=== PATIENT | male | born 1955 | race Caucasian/White ===

== ENCOUNTER 2023-02-08 07:23 | Inpatient (IN) | payer OTHER ==
[~2023-02-08] VITALS: Ht 182.9 cm; Wt 103.3 kg
[2023-02-08] MEDS ORDERED: IBUP600 PO (07:41)
[2023-02-08] MEDS ORDERED: Acetaminophen325 M1 PO (07:41)
[2023-02-08 08:01] LABS: BASOPHILS ABSOLUTE AUTO 0.05 K/mm3 (0.00-0.23); BASOPHILS PERCENT AUTO 1 % (0-2); EOSINOPHILS ABSOLUTE AUTO 0.15 K/mm3 (0.00-0.68); EOSINOPHILS PERCENT AUTO 2 % (0-6); Hematocrit 44.3 % (37.0-53.0); Hemoglobin 14.7 g/dL (13.5-17.5); IMMATURE GRAN ABSOLUTE AUTO 0.04 K/mm3 (0.00-0.10); IMMATURE GRAN PERCENT AUTO 0 % (0-1); LYMPHOCYTES ABSOLUTE AUTO 2.43 K/mm3 (0.84-5.20); LYMPHOCYTES PERCENT AUTO 24 % (21-46); MONOCYTES ABSOLUTE AUTO 0.74 K/mm3 (0.16-1.47); MONOCYTES PERCENT AUTO 7 % (4-13); Mean Corpuscular HGB 31.8 pg (26.0-34.0); Mean Corpuscular HGB Conc 33.2 g/dL (31.5-36.5); Mean Corpuscular Volume 96 fL (80-100); Mean Platelet Volume 12.1 fL (9.1-12.4); NEUTROPHILS ABSOLUTE AUTO 6.66 K/mm3 (1.96-9.15); NEUTROPHILS PERCENT AUTO 66 % (41-73); Platelet Count 191 K/mm3 (150-400); RDW Coefficient Variation 13.5 % (11.7-14.2); RDW Standard Deviation 47.4 fL (35.1-46.3); Red Blood Cell Count 4.62 M/mm3 (4.30-5.90); White Blood Cell Count 10.07 K/mm3 (4.00-11.30)
[2023-02-08 08:28] LABS: Albumin, Blood 3.7 g/dL (3.4-5.0); Bun/Creatinine Ratio 17.2 (12.0-20.0); Calcium, Blood 9.2 mg/dL (8.5-10.1); Creatinine, Blood 0.99 mg/dL (0.60-1.20); Globulin, Blood 3.7 g/dL (2.2-4.0); Potassium, Blood 4.3 mmol/L (3.5-5.5); Total Protein, Blood 7.4 g/dL (6.4-8.2)
[2023-02-08 09:17] LABS: Base Excess Venous 3.9 mmol/L; Bicarbonate Venous 25.7 mmol/L (24.0-30.0); PCO2 Venous 52.2 mmHg (38-42); pH Blood Venous 7.36 (7.34-7.37)
[2023-02-09 04:53] LABS: Anion Gap 6 mmol/L (6-16); Blood Urea Nitrogen 29 mg/dL (8-24); Bun/Creatinine Ratio 27.6 (12.0-20.0); CHOL/HDL RATIO 3.1; CO2, Blood 26 mmol/L (21-32); Calcium, Blood 9.2 mg/dL (8.5-10.1); Chloride, Blood 106 mmol/L (98-108); Cholesterol 142 mg/dL (50-200); Creatinine, Blood 1.05 mg/dL (0.60-1.20); Glomerular Filtration Rate 79 (60-); Glucose, Blood 150 mg/dL (70-99); HDL Cholesterol 46 mg/dL (>39); LDL/HDL RATIO 1.7; Low Density Lipoprotein Chol 77 mg/dL (0-110); Potassium, Blood 4.1 mmol/L (3.5-5.5); Sodium, Blood 138 mmol/L (136-145); Triglycerides 93 mg/dL (30-160); Very Low Density Lipoprot Chol 18 mg/dL (6-32)
[2023-02-09 15:10] LABS: International Normalized Ratio 1.08; Prothrombin Time Results 11.3 Sec (9.7-11.5)
[2023-02-10 04:37] LABS: BASOPHILS ABSOLUTE AUTO 0.07 K/mm3 (0.00-0.23); BASOPHILS PERCENT AUTO 1 % (0-2); EOSINOPHILS ABSOLUTE AUTO 0.07 K/mm3 (0.00-0.68); EOSINOPHILS PERCENT AUTO 1 % (0-6); Hematocrit 41.9 % (37.0-53.0); Hemoglobin 14.2 g/dL (13.5-17.5); IMMATURE GRAN ABSOLUTE AUTO 0.07 K/mm3 (0.00-0.10); IMMATURE GRAN PERCENT AUTO 1 % (0-1); LYMPHOCYTES ABSOLUTE AUTO 3.45 K/mm3 (0.84-5.20); LYMPHOCYTES PERCENT AUTO 24 % (21-46); MONOCYTES ABSOLUTE AUTO 1.09 K/mm3 (0.16-1.47); MONOCYTES PERCENT AUTO 8 % (4-13); Mean Corpuscular HGB 31.9 pg (26.0-34.0); Mean Corpuscular HGB Conc 33.9 g/dL (31.5-36.5); Mean Corpuscular Volume 94 fL (80-100); Mean Platelet Volume 11.8 fL (9.1-12.4); NEUTROPHILS ABSOLUTE AUTO 9.47 K/mm3 (1.96-9.15); NEUTROPHILS PERCENT AUTO 67 % (41-73); Platelet Count 235 K/mm3 (150-400); RDW Coefficient Variation 13.4 % (11.7-14.2); RDW Standard Deviation 46.3 fL (35.1-46.3); Red Blood Cell Count 4.45 M/mm3 (4.30-5.90); White Blood Cell Count 14.22 K/mm3 (4.00-11.30)
[2023-02-10 04:52] LABS: International Normalized Ratio 1.15
[2023-02-10 04:57] LABS: Albumin, Blood 3.7 g/dL (3.4-5.0); Anion Gap 6 mmol/L (6-16); Blood Urea Nitrogen 34 mg/dL (8-24); Bun/Creatinine Ratio 31.5 (12.0-20.0); CO2, Blood 28 mmol/L (21-32); Chloride, Blood 106 mmol/L (98-108); Creatinine, Blood 1.08 mg/dL (0.60-1.20); Glomerular Filtration Rate 76 (60-); Glucose, Blood 112 mg/dL (70-99); Magnesium, Blood 2.1 mg/dL (1.6-2.4); Phosphorus, Blood 4.4 mg/dL (2.5-4.9); Potassium, Blood 3.9 mmol/L (3.5-5.5); Sodium, Blood 140 mmol/L (136-145)
[2023-02-11 02:48] LABS: BASOPHILS ABSOLUTE AUTO 0.08 K/mm3 (0.00-0.23); BASOPHILS PERCENT AUTO 1 % (0-2); EOSINOPHILS ABSOLUTE AUTO 0.07 K/mm3 (0.00-0.68); EOSINOPHILS PERCENT AUTO 1 % (0-6); IMMATURE GRAN ABSOLUTE AUTO 0.06 K/mm3 (0.00-0.10); IMMATURE GRAN PERCENT AUTO 1 % (0-1); LYMPHOCYTES ABSOLUTE AUTO 3.23 K/mm3 (0.84-5.20); LYMPHOCYTES PERCENT AUTO 33 % (21-46); MONOCYTES ABSOLUTE AUTO 0.81 K/mm3 (0.16-1.47); MONOCYTES PERCENT AUTO 8 % (4-13); Mean Corpuscular HGB 31.6 pg (26.0-34.0); Mean Corpuscular HGB Conc 34.1 g/dL (31.5-36.5); Mean Corpuscular Volume 93 fL (80-100); NEUTROPHILS PERCENT AUTO 57 % (41-73); Platelet Count 229 K/mm3 (150-400); RDW Coefficient Variation 13.2 % (11.7-14.2); RDW Standard Deviation 44.7 fL (35.1-46.3); Red Blood Cell Count 4.43 M/mm3 (4.30-5.90); White Blood Cell Count 9.95 K/mm3 (4.00-11.30)
[2023-02-11 03:04] LABS: Albumin, Blood 3.5 g/dL (3.4-5.0); Anion Gap 5 mmol/L (6-16); Blood Urea Nitrogen 37 mg/dL (8-24); Bun/Creatinine Ratio 37.3 (12.0-20.0); CO2, Blood 31 mmol/L (21-32); Calcium, Blood 8.9 mg/dL (8.5-10.1); Chloride, Blood 103 mmol/L (98-108); Creatinine, Blood 0.99 mg/dL (0.60-1.20); Glomerular Filtration Rate 85 (60-); Glucose, Blood 175 mg/dL (70-99); Phosphorus, Blood 3.5 mg/dL (2.5-4.9); Potassium, Blood 3.4 mmol/L (3.5-5.5); Sodium, Blood 139 mmol/L (136-145)
[2023-02-12 06:24] LABS: Albumin, Blood 3.6 g/dL (3.4-5.0); Anion Gap 4 mmol/L (6-16); Blood Urea Nitrogen 31 mg/dL (8-24); Bun/Creatinine Ratio 28.2 (12.0-20.0); CO2, Blood 29 mmol/L (21-32); Chloride, Blood 107 mmol/L (98-108); Glomerular Filtration Rate 75 (60-); Glucose, Blood 112 mg/dL (70-99); Magnesium, Blood 2.2 mg/dL (1.6-2.4); Phosphorus, Blood 3.6 mg/dL (2.5-4.9); Potassium, Blood 3.6 mmol/L (3.5-5.5); Sodium, Blood 140 mmol/L (136-145)
[2023-02-12] MEDS ORDERED: Prinivil10 MG PO (12:34)
[2023-02-12] MEDS ORDERED: Nicoderm Cq1 EAC1 TOP (12:35)
[2023-02-12] MEDS ORDERED: METO50ER PO (12:35)
[2023-02-12] MEDS ORDERED: XARELTO20 MG PO (12:36)
[2023-02-12] MEDS ORDERED: SPIR25 PO (12:36)
[2023-02-12] MEDS ORDERED: ALBU90OI INH (12:36)
[2023-02-12] MEDS ORDERED: FLUTICASONE-SA1 EAC1 INH (12:38)
[2023-02-12] MEDS ORDERED: FURO40 PO (12:39)
== END 2023-02-12 13:55 | disposition home or self-care (01) | DRG 308 ==
LOC: ER 07:23 → PCU 07:24
PROVIDERS: Emergency Medicine; Family Medicine; Internal Medicine Cardiovascular Disease; Nurse Practitioner Acute Care; ADMIT Internal Medicine
PROC: 5A09357 Assistance with Respiratory Ventilation, Less than 24 Consecutive Hours, Continuous Positive Airway Pressure (ICD-10-PCS; 2023-02-09)
PROC: 5A2204Z Restoration of Cardiac Rhythm, Single (ICD-10-PCS; principal; 2023-02-10)
PROC: B24BZZ4 Ultrasonography of Heart with Aorta, Transesophageal (ICD-10-PCS; 2023-02-10)
DX: I48.0 Paroxysmal atrial fibrillation (principal); I50.21 Acute systolic (congestive) heart failure; J44.1 Chronic obstructive pulmonary disease with (acute) exacerbation; I47.20 Ventricular tachycardia, unspecified; E87.6 Hypokalemia; I42.8 Other cardiomyopathies; F17.210 Nicotine dependence, cigarettes, uncomplicated; I47.1 Supraventricular tachycardia; E66.9 Obesity, unspecified; M19.90 Unspecified osteoarthritis, unspecified site; I08.1 Rheumatic disorders of both mitral and tricuspid valves; D72.829 Elevated white blood cell count, unspecified; I49.3 Ventricular premature depolarization; I49.1 Atrial premature depolarization; Z71.6 Tobacco abuse counseling; Z88.5 Allergy status to narcotic agent; Z79.899 Other long term (current) drug therapy; Z68.32 Body mass index [BMI] 32.0-32.9, adult; Z98.890 Other specified postprocedural states; Z90.49 Acquired absence of other specified parts of digestive tract
CPT/HCPCS: 36415; 70450; 71045; 80048; 80053; 80061; 80069; 82803; 83036; 83735; 83880; 84132; 84145; 84443; 84484; 85025; 85610; 85730; 92960; 93005; 93010; 93306; 93312; 93325; 94640; 94664; 94760; 94762; 96365; 96366; 96375; 96376; 99285-25; A9270; C1751; G0378; J1644; J1650; J1940; J2250; J2930; J3010

== ENCOUNTER 2024-12-11 13:15 | Day surgery (SDC) | payer OTHER ==
[2024-12-11] VITALS (17 sets, daily range): BP systolic 90–147; BP diastolic 64–107
[~2024-12-11] VITALS: Ht 182.9 cm; Wt 119.5 kg
[~2024-12-11 13:15] MED LIST: ALBU90OI INH; AMIODARONE HCL400 M2 PO; Acetaminophen 500 MG Tab PO SCH; Acetaminophen325 M1 PO; Acetaminophen650 M1 PO; Amiodarone HCl200 MG PO; Chlorhexidine Mouth Care 15 ML UDC MT SCH; DULERA 100 MCG/13 GM INH; ELIQUIS5 M2 PO; ENTRESTO 24 MG1 EACH PO; FLUTICASONE-SA1 EAC1 INH; FURO40 PO; IBUP600 PO; JARDIANCE10 MG PO; Lactated Ringer's 1,000 ML IV SCH; METO25ER PO; METO50ER PO; Nicoderm Cq1 EAC1 TOP; OMEPRAZOLE20 M1 PO; OxyCODONE HCL 10 MG TABCR PO SCH; Prinivil10 MG PO; ROSUVASTATIN CA20 MG PO; SPIR25 PO; Tranexamic Acid 100 ML IV SCH; XARELTO20 MG PO
[2024-12-11] MEDS ORDERED: CeFAZolin Sodium 2,000 MG in NS 100 ML IV SCH ×2 (13:55→23:30)
[2024-12-11] MEDS ORDERED: Ropivacaine 0.5% HCl/Pf 123.125 MG,EPINEPHrine HCL 0.25 MG,Ketorolac Tromethamine 15 MG... INFIL SCH (13:55)
[2024-12-11] MEDS ORDERED: HYDROmorphone HCl/Pf 1MG SYR IV PRN ×3 (14:35→16:00)
[2024-12-11] MEDS ORDERED: Lactated Ringer's 1,000 ML IV SCH (14:35)
[2024-12-11] MEDS ORDERED: Magnesium Hydroxide Conc 10 ML UDC PO PRN (14:35)
[2024-12-11] MEDS ORDERED: DiphenhydrAMINE HCL 25 MG Cap PO PRN (14:40)
[2024-12-11] MEDS ORDERED: OxyCODONE HCL 5 MG TAB PO PRN ×2 (14:40)
[2024-12-11] MEDS ORDERED: FLU VACC TS2024-25(6MOS UP)/PF 45 MCG/0.5 ML SYRINGE IM SCH (14:40)
[2024-12-11] MEDS ORDERED: Promethazine HCl 25 MG Tab PO PRN (14:40)
[2024-12-11] MEDS ORDERED: Bisacodyl 10 MG Supp PR PRN (14:40)
[2024-12-11] MEDS ORDERED: Ondansetron HCl 2 MG / ML 2ML Vial IV PRN ×2 (14:45→16:00)
[2024-12-11] MEDS ORDERED: Metoclopramide HCl 5MG / ML 2ML Vial IV PRN (14:45)
[2024-12-11] MEDS ORDERED: Midazolam HCl 1MG / ML 2ML Vial ONE (15:17)
[2024-12-11] MEDS ORDERED: propofoL 20 ML IV ONE ×3 (15:31→16:59)
[2024-12-11] MEDS ORDERED: Phenylephrine HCl 100 MCG/ML-NS 10MLSYR (1MG/10ML) ONE ×2 (15:31→16:14)
[2024-12-11] MEDS ORDERED: HydrALAZINE HCl 20 MG / ML 1ML Vial IV PRN (16:00)
[2024-12-11] MEDS ORDERED: FentaNYL Citrate 50 MCG/ML 2 ML Injection IV PRN ×2 (16:00)
[2024-12-11] MEDS ORDERED: FentaNYL Citrate 50 MCG/ML 5 ML Injection ONE (16:01)
[2024-12-11] MEDS ORDERED: Insulin Regular 100 UNIT/ML 10ML Vial SC SCH (16:30)
[2024-12-11] MEDS ORDERED: Ondansetron HCl 2 MG / ML 2ML Vial ONE (17:35)
[2024-12-11] MEDS ORDERED: Ketorolac Tromethamine 15mg Vial IV SCH (18:00)
--- NOTE | 2024-12-11 19:01 | NUR ---
pt arrived to unit from pacu at 1830 VSS. DENIES PAIN. ABLE TO WIGGLE TOES AND REPORTS SENSATION INTACT. ADMINISTERED TORADOL AND TXA PER ORDERS. BEDSIDE REPORT COMPLETE.
[2024-12-11] MEDS ORDERED: Docusate Sodium 100 MG Cap PO SCH (21:00)
[2024-12-11] MEDS ORDERED: Acetaminophen 500 MG Tab PO SCH (22:00)
[2024-12-12 00:12] VITALS: BP 118/84
[2024-12-12 04:52] VITALS: BP 117/83
[2024-12-12 05:55] LABS: BASOPHILS ABSOLUTE AUTO 0.05 K/mm3 (0.00-0.23); BASOPHILS PERCENT AUTO 0 % (0-2); EOSINOPHILS ABSOLUTE AUTO 0.19 K/mm3 (0.00-0.68); EOSINOPHILS PERCENT AUTO 2 % (0-6); Hematocrit 40.8 % (37.0-53.0); Hemoglobin 13.6 g/dL (13.5-17.5); IMMATURE GRAN ABSOLUTE AUTO 0.04 K/mm3 (0.00-0.10); IMMATURE GRAN PERCENT AUTO 0 % (0-1); LYMPHOCYTES ABSOLUTE AUTO 2.86 K/mm3 (0.84-5.20); LYMPHOCYTES PERCENT AUTO 24 % (21-46); MONOCYTES ABSOLUTE AUTO 1.14 K/mm3 (0.16-1.47); MONOCYTES PERCENT AUTO 10 % (4-13); Mean Corpuscular HGB 32.3 pg (26.0-34.0); Mean Corpuscular HGB Conc 33.3 g/dL (31.5-36.5); Mean Corpuscular Volume 97 fL (80-100); Mean Platelet Volume 11.9 fL (9.1-12.4); NEUTROPHILS ABSOLUTE AUTO 7.69 K/mm3 (1.96-9.15); NEUTROPHILS PERCENT AUTO 64 % (41-73); Platelet Count 160 K/mm3 (150-400); RDW Standard Deviation 46.6 fL (35.1-46.3); Red Blood Cell Count 4.21 M/mm3 (4.30-5.90); White Blood Cell Count 11.97 K/mm3 (4.00-11.30)
[2024-12-12] MEDS ORDERED: Omeprazole 20 MG CapCR PO SCH (06:00)
--- NOTE | 2024-12-12 06:12 | NUR ---
SHIFT SUMMARY POD 1 L TKA. NO ACUTE CHANGES OVERNIGHT. VSS. TOLERATING ORALS. VOIDING. AQUACEL C/D/I. PT REPORTS PAIN TOLERABLE, MEDICATED PER EMAR, POLAR PACK IN USE. AMBULATES USING FWW c GB & SBA. RESTING IN CHAIR c LOWER EXTREMITIES ELEVATED. ANTICIPATED TO WORK c PHYSCIAL THERAPY THEN DISCHARGE HOME LATER TODAY. CALL LIGHT IN REACH, WILL REPORT TO DAY RN.
[2024-12-12 06:14] LABS: Bun/Creatinine Ratio 16.9 (12.0-20.0); Calcium, Blood 8.6 mg/dL (8.5-10.1); Creatinine, Blood 1.6 mg/dL (0.60-1.20)
[2024-12-12 07:02] VITALS: BP 112/77
[2024-12-12] MEDS ORDERED: Rosuvastatin Calcium 10 MG Tab PO SCH (09:00)
[2024-12-12] MEDS ORDERED: Spironolactone 25 MG Tab PO SCH (09:00)
[2024-12-12] MEDS ORDERED: Metoprolol Succinate 50 MG TABCR PO SCH (09:00)
[2024-12-12] MEDS ORDERED: Empagliflozin 10 MG TAB PO SCH (09:00)
[2024-12-12] MEDS ORDERED: Furosemide 40 MG Tab PO SCH (09:00)
[2024-12-12] MEDS ORDERED: OXYC5 PO (09:19)
[2024-12-12 10:24] VITALS: BP 119/86
--- NOTE | 2024-12-12 10:34 | NUR ---
DISCHARGING PT CLEARED THERAPY. PAIN CONTROLLED WITH PO PAIN MEDS. TOLERATING DIET. VOIDING. REVIEWED DC INSTRUCTIONS W/PT; VERBALIZED UNDERSTANDING. PROVIDED AQUACEL DRESSINGS. PT SIGNED DC PAPERWORK AND IS AWAITING RIDE HOME.
--- NOTE | 2024-12-12 11:18 | NUR ---
discharged PT LEFT UNIT IN , ACCOMPANIED BY SO, WHO HAD POSSESSIONS, DC PAPERWORK AND POLAR PACK IN HAND.
[2024-12-12] MEDS ORDERED: Apixaban 5 MG Tab PO SCH (13:00)
== END 2024-12-12 11:19 | disposition home or self-care (01) ==
LOC: ORSCMMR 13:15 → ORD 14:30 → SURS 18:33 → ORSCMMR 12-12 11:19
PROVIDERS: Orthopaedic Surgery
PROC: 8E0Y0CZ Robotic Assisted Procedure of Lower Extremity, Open Approach (ICD-10-PCS; principal; 2024-12-11 14:30)
PROC: 0SRD0JA Replacement of Left Knee Joint with Synthetic Substitute, Uncemented, Open Approach (ICD-10-PCS; principal; 2024-12-11 14:30)
DX: M17.12 Unilateral primary osteoarthritis, left knee (principal); K21.9 Gastro-esophageal reflux disease without esophagitis; Z79.01 Long term (current) use of anticoagulants; Z79.85 Long-term (current) use of injectable non-insulin antidiabetic drugs; E78.5 Hyperlipidemia, unspecified; I10 Essential (primary) hypertension; N17.9 Acute kidney failure, unspecified; I50.9 Heart failure, unspecified; Z79.899 Other long term (current) drug therapy; I42.7 Cardiomyopathy due to drug and external agent
CPT/HCPCS: 27447; 0055T; 36415; 73560-LT; 80048; 83735; 85025; 94760; 97110; 97116; 97162; A9270; C1713; C1776; J0171; J0690; J0735; J1885; J2250; J2371; J2405; J2704; J2765; J2795; J3010; J7120

== ENCOUNTER 2025-08-06 07:02 | Day surgery (SDC) | payer OTHER ==
[2025-08-06] VITALS (13 sets, daily range): BP systolic 97–126; BP diastolic 71–93
[~2025-08-06] VITALS: Ht 172.7 cm; Wt 114.1 kg
[~2025-08-06 07:02] MED LIST changes: -Acetaminophen 500 MG Tab PO SCH; +CeFAZolin Sodium 2,000 MG in NS 100 ML IV SCH; -Lactated Ringer's 1,000 ML IV SCH; +OXYC5 PO; -OxyCODONE HCL 10 MG TABCR PO SCH; +Ropivacaine 0.5% HCl/Pf 123.125 MG,EPINEPHrine HCL 0.25 MG,Ketorolac Tromethamine 15 MG... INFIL SCH; +TOPROL XL200 MG PO
[2025-08-06] MEDS ORDERED: Mupirocin Calcium Oint 1 GM ONE (07:35)
[2025-08-06] MEDS ORDERED: Bupivacaine 0.75%/Dext 8.25% 2 ML Amp IT ONE (07:40)
[2025-08-06] MEDS ORDERED: FentaNYL Citrate 50 MCG/ML 2 ML Injection ONE (07:41)
[2025-08-06] MEDS ORDERED: Midazolam HCl 1MG / ML 2ML Vial ONE (07:41)
--- NOTE | 2025-08-06 07:46 | NUR ---
History, Chart, Medications and Allergies reviewed before start of procedure. Pre-Op teaching done. Pt verbalizes understanding. Patient States Post-Procedure ride home has been arranged. Patient confirms NPO status and agrees with scheduled surgery. IN TO SDS VIA WC. ABLE TO AMULATE INDEPENTLY TO BED. PATIENT STATES HE DID NOT DUE THE MUPIROCIN OINMNET TO NARES PRE OP DUE TO NOT ARRIVING IN TIME. DR. EUBANKS INFORMED. ORDERED FOR DOSE TO NARE PRE OP. NO OTHER ANTIBIOTIC ORDERED.
--- NOTE | 2025-08-06 08:08 | NUR ---
DR. HAWKINS IN AND ORDERED VANCO 1 GM IVPB PRE OP. MUPIROCIN APPLINED TO BILATERAL NARES. GLASSES PLACED IN BELONGINGS BAG BY PATIENT.
[2025-08-06] MEDS ORDERED: Magnesium Hydroxide Conc 10 ML UDC PO PRN (08:25)
[2025-08-06] MEDS ORDERED: Metoclopramide HCl 5MG / ML 2ML Vial IV PRN ×2 (08:30→08:40)
[2025-08-06] MEDS ORDERED: Ondansetron HCl 2 MG / ML 2ML Vial IV PRN ×2 (08:30→08:45)
[2025-08-06] MEDS ORDERED: HYDROmorphone HCl/Pf 1MG SYR IV PRN ×2 (08:35→08:45)
--- NOTE | 2025-08-06 08:38 | NUR ---
Pt dentures and hearing aids x2 taken to PACU for safekeeping.
[2025-08-06] MEDS ORDERED: FentaNYL Citrate 50 MCG/ML 2 ML Injection IV PRN ×3 (08:40→08:45)
[2025-08-06] MEDS ORDERED: Albuterol 2.5 MG/3 ML VIAL INH PRN (08:40)
[2025-08-06] MEDS ORDERED: Labetalol HCL 5 MG/ML 4ML Injection (Single Dose) IV PRN (08:45)
[2025-08-06] MEDS ORDERED: Dexamethasone Sod Phos 10 MG/ML 1ML VIAL ONE (09:03)
[2025-08-06] MEDS ORDERED: Phenylephrine HCl 100 MCG/ML-NS 10MLSYR (1MG/10ML) ONE ×2 (09:03→09:43)
[2025-08-06] MEDS ORDERED: Ondansetron HCl 2 MG / ML 2ML Vial ONE (09:03)
[2025-08-06] MEDS ORDERED: Insulin Regular 100 UNIT/ML 10ML Vial SC SCH (11:30)
[2025-08-06] MEDS ORDERED: Ketorolac Tromethamine 15mg Vial IV SCH (12:00)
[2025-08-06] MEDS ORDERED: DOCU100 PO (14:07)
[2025-08-06] MEDS ORDERED: OXYC5 PO (14:08)
[2025-08-06] MEDS ORDERED: CeFAZolin Sodium 2,000 MG in NS 100 ML IV SCH (16:00)
--- NOTE | 2025-08-06 18:30 | NUR ---
SHIFT SUMMARY PATIENT POST OP DAY 0 FOR RIGHT KNEE REPLACEMENT. VSS. MEDICATED PER EMAR FOR PAIN. PATIENT WORKED WITH THERAPY AND IS CLEARED FOR DISCHARGE. ABLE TO VOID USING URINAL. TOLERATING PO. NO OTHER CHANGES, WILL REPORT TO CONTENT MANAGEMENT CONSULTANT RN.
[2025-08-07 03:48] VITALS: BP 110/95
[2025-08-07 04:27] LABS: BASOPHILS ABSOLUTE AUTO 0.02 K/mm3 (0.00-0.23); BASOPHILS PERCENT AUTO 0 % (0-2); EOSINOPHILS ABSOLUTE AUTO 0.00 K/mm3 (0.00-0.68); EOSINOPHILS PERCENT AUTO 0 % (0-6); Hematocrit 45.1 % (37.0-53.0); Hemoglobin 15.2 g/dL (13.5-17.5); IMMATURE GRAN ABSOLUTE AUTO 0.14 K/mm3 (0.00-0.10); IMMATURE GRAN PERCENT AUTO 1 % (0-1); LYMPHOCYTES ABSOLUTE AUTO 2.31 K/mm3 (0.84-5.20); LYMPHOCYTES PERCENT AUTO 13 % (21-46); MONOCYTES ABSOLUTE AUTO 1.15 K/mm3 (0.16-1.47); MONOCYTES PERCENT AUTO 6 % (4-13); Mean Corpuscular HGB Conc 33.7 g/dL (31.5-36.5); Mean Corpuscular Volume 93 fL (80-100); NEUTROPHILS ABSOLUTE AUTO 14.35 K/mm3 (1.96-9.15); NEUTROPHILS PERCENT AUTO 80 % (41-73); NRBC ABSOLUTE 0.00 K/mm3 (0.00-0.02); NRBC Auto 0.0 /100 WBC (0.0-0.2); Platelet Count 173 K/mm3 (150-400); RDW Coefficient Variation 13.0 % (11.7-14.2); RDW Standard Deviation 44.6 fL (35.1-46.3)
[2025-08-07 04:51] LABS: Magnesium, Blood 1.9 mg/dL (1.6-2.4)
[2025-08-07 04:52] LABS: Anion Gap 9.0 mmol/L (3-11); Blood Urea Nitrogen 30.0 mg/dL (8-24); CO2, Blood 25.0 mmol/L (21-32); Calcium, Blood 8.6 mg/dL (8.5-10.1); Chloride, Blood 106.0 mmol/L (98-108); Creatinine, Blood 1.42 mg/dL (0.60-1.20); Glucose, Blood 171.0 mg/dL (70-99); Potassium, Blood 4.3 mmol/L (3.5-5.5); Sodium, Blood 136.0 mmol/L (136-145)
--- NOTE | 2025-08-07 05:34 | NUR ---
SHIFT SUMMARY DARIA WAS ALERT AND FULLY ORIENTED ON ASSESSMENT. PT SENSATION AND CIRCULATION TO EXTS INTACT. PAIN IS WELL MANAGED. PT DENIES SOB, CHEST PAIN, OR NAUSEA. PT ABLE TO AMBULATE AND VOID APPROPRIATELY. NO ACUTE EVENTS, NO NOTED CHANGES TO PT CONDITION.
[2025-08-07 07:11] VITALS: BP 136/99
--- NOTE | 2025-08-07 10:15 | NUR ---
DISCHARGE SUMMARY ADMITTED ON 08/06 FOR R TKA. A&O x4, VSS, HRR. SURGICAL INCISION SITE w/TEFLA & TEGADERM, NO DRAINAGE, C/D/I. WORKED w/THERAPY YESTERDAY, AMBULATES w/WALKER. TOLERATING REGULAR DIET WELL. VOIDED SUCCESSFULLY. DISCHARGE INSTRUCTIONS REVIEWED BY DAY SHIFT RN YESTERDAY, PT VERBALIZES CONTINUED UNDERSTANDING AND HAS NO FURTHER QUESTIONS. PT CONFIRMED PERSCRIPTION WAS RECIEVED BY PHARMACY THIS MORNING. AWAITING TO CA.
--- NOTE | 2025-08-07 10:53 | NUR ---
POLAR PACK & INSTRUCTIONS SENT, ESCORTED OUT VIA WC.
== END 2025-08-07 10:55 | disposition home or self-care (01) ==
LOC: ORSCMMR 07:02 → ORD 08:30 → SURS 11:21 → ORSCMMR 08-07 10:55 → ORD 08-20 08:30
PROVIDERS: Orthopaedic Surgery
PROC: 8E0Y0CZ Robotic Assisted Procedure of Lower Extremity, Open Approach (ICD-10-PCS; principal; 2025-08-06 08:30)
PROC: 0SRC0JA Replacement of Right Knee Joint with Synthetic Substitute, Uncemented, Open Approach (ICD-10-PCS; principal; 2025-08-06 08:30)
DX: M17.11 Unilateral primary osteoarthritis, right knee (principal); Z96.652 Presence of left artificial knee joint; I10 Essential (primary) hypertension; I48.91 Unspecified atrial fibrillation; Z79.01 Long term (current) use of anticoagulants; Z87.891 Personal history of nicotine dependence; I50.9 Heart failure, unspecified; K21.9 Gastro-esophageal reflux disease without esophagitis; Z79.899 Other long term (current) drug therapy; Z79.85 Long-term (current) use of injectable non-insulin antidiabetic drugs; E66.9 Obesity, unspecified; Z68.38 Body mass index [BMI] 38.0-38.9, adult
CPT/HCPCS: 27447; 0055T; 36415; 73560-RT; 80048; 83735; 85025; 97110; 97116; 97161; A9270; C1713; C1776; J0166; J0690; J0735; J1100; J1885; J2250; J2371; J2405; J2704; J2795; J3010; J3373; J7050; J7120